=== PATIENT | female | born 2000 | race African-American/Black ===

== ENCOUNTER 2019-06-08 20:08 | Emergency (ER) | payer MEDICAID, SELFPAY ==
[2019-06-08] MEDS ORDERED: Acetaminophen 500 MG TAB ONE (20:36)
[2019-06-08] MEDS ORDERED: Ondansetron ODT 4 MG TAB ONE (20:37)
[2019-06-08 21:24] LABS: Bilirubin Negative (Negative); Blood, Urine Negative (Negative); Clarity Clear (Clear); Glucose, Urine (Dipstick) Negative (Negative); Leukocyte Negative (Negative); Nitrite Negative (Negative); Protein, Urine (Dipstick) Trace mg/dL (Neg-Trace); Urobilinogen 0.2 mg/dL (Less than 2)
[2019-06-08 21:26] LABS: Pregnancy Test - Urine (BHCG) Negative (Negative); Pregu Control Background? CLEAR/WHITE (CLR/WHITE); Pregu Control Bar Appear? YES (CONTROL BAR); Specific Gravity 1.034 (1.002-1.036)
== END 2019-06-08 22:01 | disposition home or self-care (01) ==
LOC: NAV ERS 20:08
DX: R11.2 Nausea with vomiting, unspecified (principal); B34.9 Viral infection, unspecified
CPT/HCPCS: 81003; 81025; 87804; 99284; Q0162

== ENCOUNTER 2019-10-24 20:35 | Emergency (ER) | payer SELFPAY ==
[2019-10-24 21:44] LABS: Bilirubin Negative (Negative); Blood, Urine Trace (Negative); Clarity Clear (Clear); Glucose, Urine (Dipstick) Negative (Negative); Leukocyte Small (Negative); Nitrite Negative (Negative); Protein, Urine (Dipstick) Negative (Neg-Trace); Urobilinogen 0.2 mg/dL (Less than 2)
[2019-10-24 21:45] LABS: Pregnancy Test - Urine (BHCG) Negative (Negative); Pregu Control Background? CLEAR/WHITE (CLR/WHITE); Pregu Control Bar Appear? YES (CONTROL BAR); Specific Gravity 1.025 (1.002-1.036)
[2019-10-24 21:48] LABS: Bacteria/HPF 1+ HPF (None Seen)
[2019-10-24 21:55] LABS: #Basophils 0.1 thou/uL (0.0-0.2); #Eosinphils 0.1 thou/uL (0.0-0.7); #Lymphocytes 2.6 thou/uL (1.20-3.40); #Monocytes 0.6 thou/uL (0.11-0.59); #Neutrophils 4.3 thou/uL (1.40-6.50); %Basophils 0.8 % (0.0-1.0); %Eosinophils 1.5 % (0.0-10.0); %Lymphocytes 33.7 % (21.0-51.0); %Monocytes 8.3 % (0.0-10.0); %Neutrophils 55.7 % (42.0-75.0); Hemoglobin 10.3 g/dL (12.0-16.0); Hypochromia SLIGHT = 6-15 cells (100X) (0-5/hpf); MDiff Complete? YES; Mean Corpuscular HGB CONC 31.6 g/dL (32.0-36.0); Mean Platelet Volume 6.6 fL (7.4-10.4); Microcytosis SLIGHT = 6-15 cells (100X) (0-5/hpf); Ovalocytes SLIGHT = 2-5 cells (100X) (0-1/hpf); Platelet Count 348 thou/uL (130-400); Platelet Morphology Comment Appears Adequate; Poikilocytosis MODERATE=16-30 cells (100X) (0-5/hpf); RBC Distribution Width 14.7 % (11.5-14.5); Red Blood Cell (RBC) Count 4.14 mill/uL (4.20-5.40); Spherocytes SLIGHT = 1-5 cells (100X) (None Seen); White Blood Cell (WBC) Count 7.6 thou/uL (4.8-10.8)
[2019-10-24 22:12] LABS: ALT (SGPT) 24 U/L (8-55); AST (SGOT) 24 U/L (5-34); Albumin 4.2 g/dL (3.5-5.0); Alkaline Phosphatase 86 U/L (40-110); Anion Gap 13 mmol/L (10-20); BUN (Urea Nitrogen) 11 mg/dL (7.0-18.7); Bilirubin, Total 0.2 mg/dL (0.2-1.2); Calc. Creatinine Clearance 0 mL/min (70-130); Calcium 9.2 mg/dL (7.8-10.44); Carbon Dioxide 24 mmol/L (22-29); Chloride 108 mmol/L (98-107); Estimated GFR-MDRD Greater than 90; Glucose 75 mg/dL (70-105); Potassium 3.7 mmol/L (3.5-5.1); Protein, Total 7.2 g/dL (6.0-8.3); Sodium 141 mmol/L (136-145)
== END 2019-10-24 22:50 | disposition home or self-care (01) ==
LOC: NAV ERS 20:35
DX: D50.9 Iron deficiency anemia, unspecified (principal)
CPT/HCPCS: 36415; 80053; 81003; 81015; 81025; 84443; 85025; 99284

== ENCOUNTER 2019-12-31 08:30 | Emergency (ER) | payer SELFPAY | END 2019-12-31 08:54 | disposition home or self-care (01) | LOC: NAV ERS 08:30 | DX: J02.9 Acute pharyngitis, unspecified (principal); H61.22 Impacted cerumen, left ear | CPT/HCPCS: 87081; 87430; 99283 ==

== ENCOUNTER 2020-02-27 10:19 | Emergency (ER) | payer OTHER, SELFPAY ==
[2020-02-28 15:22] LABS: SARS-CoV-2 MS2 Positive; SARS-CoV-2 N Gene Negative; SARS-CoV-2 S Gene Negative; SARS-CoV-2 orf1ab Negative
== END 2020-02-27 11:05 | disposition home or self-care (01) ==
LOC: NAV ERS 10:19
DX: Z20.828 Contact with and (suspected) exposure to other viral communicable diseases (principal)
CPT/HCPCS: 87635; 99283; U0003

== ENCOUNTER 2020-08-26 12:21 | Emergency (ER) | payer SELFPAY ==
--- NOTE | 2020-08-26 13:30 | RAD ---
EXAM: Two views chest PROVIDED CLINICAL HISTORY: Cough with chest pain COMPARISON: None FINDINGS: Cardiac silhouette and pulmonary vasculature are within normal limits. The lungs are clear. The osse ous structures have a normal appearance. IMPRESSION: No acute cardiopulmonary process.
[2020-08-27 22:16] LABS: SARS-CoV-2 PCR by NAA DETECTED (NotDetected)
== END 2020-08-26 13:35 | disposition home or self-care (01) ==
LOC: NAV ERS 12:21
DX: U07.1 COVID-19 (principal)
CPT/HCPCS: 71046; 87635; U0003; U0005